=== PATIENT | male | born 1980 | race Two or more races ===

== ENCOUNTER 2022-09-26 14:50 | Outpatient (CLI) | payer MEDICARE, OTHER | END 2022-09-26 23:59 | disposition home or self-care (01) | LOC: LAB 14:50 | PROVIDERS: ATTEND Surgery Vascular Surgery | DX: Z01.812 Encounter for preprocedural laboratory examination (principal); Z20.822 Contact with and (suspected) exposure to COVID-19 | CPT/HCPCS: U0003; C9803 ==

== ENCOUNTER 2022-10-03 11:48 | Outpatient (CLI) | payer MEDICARE, OTHER | END 2022-10-03 23:59 | disposition home or self-care (01) | LOC: LAB 11:48 | PROVIDERS: ATTEND Surgery Vascular Surgery | DX: Z01.812 Encounter for preprocedural laboratory examination (principal); Z20.822 Contact with and (suspected) exposure to COVID-19 | CPT/HCPCS: U0003; C9803 ==

== ENCOUNTER 2022-10-09 06:03 | Inpatient (IN) | payer MEDICARE, OTHER ==
[2022-10-09] VITALS (11 sets, daily range): BP systolic 142–175; BP diastolic 90–101
[~2022-10-09] VITALS: Ht 167.6 cm; Wt 73.5 kg
[2022-10-09] MEDS ORDERED: IOHEXOL 240MG/ML 50 ML IV ONE (07:10)
[2022-10-09] MEDS ORDERED: HEPARIN SODIUM, PORCINE 1,000 UNIT/ML VIAL ONE (07:10)
[2022-10-09] MEDS ORDERED: BUPIVACAINE 0.5 % PF 150 MG/30 ML VIAL ONE (07:10)
[2022-10-09] MEDS ORDERED: LIDOCAINE 1% INJ 50 ML MDV IJ ONE (07:10)
[2022-10-09] MEDS ORDERED: CELLULOSE,OXIDIZED 1 EACH EACH MC ONE (07:11)
[2022-10-09 07:42] LABS: CALCIUM, SERUM 9.6 mg/dL (8.5-10.1); POTASSIUM 4.5 mmol/L (3.5-5.1)
[2022-10-09 07:46] LABS: EOSINOPHILS % (AUTO) 1.7 % (0.0-6.0); HEMATOCRIT 36 % (39-51); HEMOGLOBIN 11.9 g/dL (13.5-17.5); LYMPHOCYTES # (AUTO) 0.9 K/uL (0.8-4.8); MEAN CORPUSCULAR HGB CONC 33 g/dl (31.0-36.0); MEAN CORPUSCULAR VOLUME 99 fL (80-96); MONOCYTES # (AUTO) 0.4 K/uL (0.1-1.30); NEUTROPHILS # (AUTO) 2.2 K/uL (1.8-8.9); NEUTROPHILS % (AUTO) 61.3 % (43.0-81.0); PLATELET COUNT (AUTO) 183 K/uL (150-450); RED BLOOD CELL COUNT(AUTO) 3.68 MIL/uL (4.5-6.0); WHITE BLOOD COUNT (AUTO) 3.6 K/uL (4.3-11.0)
[2022-10-09] MEDS ORDERED: FENTANYL PF 100MCG/2ML AMPUL ONE ×2 (08:11→11:46)
[2022-10-09] MEDS ORDERED: POLYMYXIN B SULFATE 500,000 UNITS ONE (10:11)
[2022-10-09] MEDS ORDERED: hydrALAZINE HCL IV 20 MG VIAL ONE (11:59)
--- NOTE | 2022-10-09 12:30 | NUR ---
ICU/RN PT TRANSFER FROM OR.POST LEFT ARM HD FISTULA LIGATION BY DR JO.PT POST OP HAS SOB.BP WAS HIGH. PT IS ESRD. ON HD.NEW RIGHT CHEST HD CATH PLACED.IV-HL.PT IS SLEEPY.ANURIC.LEFT ARM DANNY DRAINING WITH BLOODY SECRETION. ARM HAS SURGICAL DRESSING NO S/S OF BLEEDING NOTED.V/S STABLE,AFEBRILE. ON 2L N/C ,SAT O2-97%.
[2022-10-09] MEDS ORDERED: ERGO500040 PO (13:18)
[2022-10-09] MEDS ORDERED: ASPI-1420 PO (13:18)
[2022-10-09] MEDS ORDERED: NIFE90TA38 PO (13:18)
[2022-10-09] MEDS ORDERED: LISI10TA29 PO (13:18)
[2022-10-09] MEDS ORDERED: CALC667C6 PO (13:18)
[2022-10-09] MEDS ORDERED: SILD20TA2 PO (13:18)
[2022-10-09] MEDS ORDERED: APIX5TAB PO (13:18)
[2022-10-09] MEDS ORDERED: CINA60TA4 PO (13:18)
[2022-10-09] MEDS ORDERED: HYDR-4076 PO (13:18)
[2022-10-09] MEDS ORDERED: ATOR40TA PO (13:18)
[2022-10-09] MEDS ORDERED: LANT10005 PO (13:18)
[2022-10-09] MEDS ORDERED: FOLI0.8T2 PO (13:18)
[2022-10-09] MEDS ORDERED: CARV3.122 PO (13:18)
[2022-10-09] MEDS ORDERED: SEVE800T28 PO (13:18)
[2022-10-09] MEDS ORDERED: CEFAZOLIN 1 GM in IV D5W 50 ML IV ONE (14:00)
[2022-10-09] MEDS ORDERED: ANESTHESIA TRAY IN PYXIS 1 EA TRAY MC ONE (14:17)
[2022-10-09 14:58] LABS: BASOPHILS # (AUTO) 0.1 K/uL (0.0-0.2); BASOPHILS % (AUTO) 1.8 % (0.0-2.0); EOSINOPHILS % (AUTO) 0.1 % (0.0-6.0); HEMATOCRIT 34 % (39-51); HEMOGLOBIN 11.2 g/dL (13.5-17.5); LYMPHOCYTES # (AUTO) 0.2 K/uL (0.8-4.8); LYMPHOCYTES % (AUTO) 4.5 % (20.0-44.0); MEAN CORPUSCULAR HGB CONC 33 g/dl (31.0-36.0); MEAN CORPUSCULAR VOLUME 98 fL (80-96); MONOCYTES # (AUTO) 0.1 K/uL (0.1-1.30); MONOCYTES % (AUTO) 1.9 % (2.0-12.0); NEUTROPHILS # (AUTO) 4.6 K/uL (1.8-8.9); NEUTROPHILS % (AUTO) 91.7 % (43.0-81.0); PLATELET COUNT (AUTO) 169 K/uL (150-450); RED BLOOD CELL COUNT(AUTO) 3.49 MIL/uL (4.5-6.0); WHITE BLOOD COUNT (AUTO) 5.1 K/uL (4.3-11.0)
[2022-10-09] MEDS: CEFAZOLIN 1 GM in IV D5W 50 ML IV SCH ×2 (15:14→23:12)
--- NOTE | 2022-10-09 15:46 | NUR ---
ICU/RN DUE MEDS ARE GIVEN ORDERED. KATHRINE QUEEN SEEN THE PT ,NEW ORDERS RECEIVED.
[2022-10-09] MEDS: APIXABAN 5 MG TABLET PO SCH (17:00)
[2022-10-09] MEDS: SILDENAFIL CITRATE 20 MG TABLET PO SCH (17:48)
[2022-10-09] MEDS: hydrALAZINE HCL 25 MG TABLET PO SCH (17:48)
[2022-10-09] MEDS: CALCIUM ACETATE 667 MG CAP/TAB PO SCH (17:49)
[2022-10-09] MEDS: CARVEDILOL 3.125 MG TABLET PO SCH (17:49)
[2022-10-09] MEDS: SEVELAMER CARBONATE 800 MG TABLET PO SCH (17:49)
[2022-10-09] MEDS: LANTHANUM CARBONATE 500 MG TAB.CHEW PO SCH (17:50)
[2022-10-09] MEDS: MORPHINE SULFATE INJ 2 MG/ML DISP.SYRIN IV PRN (17:51)
--- NOTE | 2022-10-09 20:16 | NUR ---
RN OPENING NOTE PT A&OX4 IN SEMI-FOWLERS POSITION. RESPIRATIONS EVEN AND UNLABORED ON 4 LPM NC WITH O2 SAT OF 98%. SKIN IS HOT AND DRY TO TOUCH BUT AFEBRILE WITH TEMP OF 98.8. DANNY DRAIN OF RUE INTACT WITH SANGUINEOUS DRAINAGE. CMS PRESENT IN BILAT UPPER EXTREMITIES. NO OTHER SIGNS OF ACTIVE BLEEDING. 22G IV OF LLE INTACT AND RUNNING 0.9 NS AT 10ML/HR. PT DENIES PAIN AND OTHER NEEDS AT THIS TIME. SAFETY PRECAUTIONS IN PLACE. BED LOCKED AND AT LOWEST LEVEL. X2 RAILS UP AND CALL LIGHT WITHIN REACH. Addendum: 10/09/22 at 2024 by SUNDEEP CLARK RN SURGICAL DRESSING DRY AND CLEAN. L RADIAL PULSE IS STRONG. DANNY DRAIN ON LUE.
[2022-10-09] MEDS: ATORVASTATIN 40 MG TABLET PO SCH (21:17)
[2022-10-10] VITALS (30 sets, daily range): BP systolic 145–176; BP diastolic 84–111
--- NOTE | 2022-10-10 03:48 | NUR ---
SALES RECRUITMENT SPECIALIST. AM CARE GIVEN. REMAINING SAME IVF RUNNING. HOB ELEVATED, FC PATENT. AMIODARONE HOB ELEVATED, TURN AND REPOSITION Q2H.WILL CONTINUE TO MONITOR VITALS. Addendum: 10/10/22 at 0357 by MEI CASH RN different pt care,
[2022-10-10 04:46] LABS: BASOPHILS % (AUTO) 0.7 % (0.0-2.0); EOSINOPHILS % (AUTO) 1.2 % (0.0-6.0); HEMATOCRIT 32 % (39-51); HEMOGLOBIN 10.5 g/dL (13.5-17.5); LYMPHOCYTES # (AUTO) 0.8 K/uL (0.8-4.8); LYMPHOCYTES % (AUTO) 14.8 % (20.0-44.0); MEAN CORPUSCULAR HGB CONC 34 g/dl (31.0-36.0); MEAN CORPUSCULAR VOLUME 98 fL (80-96); MONOCYTES # (AUTO) 0.6 K/uL (0.1-1.30); MONOCYTES % (AUTO) 11.3 % (2.0-12.0); PLATELET COUNT (AUTO) 187 K/uL (150-450); RED BLOOD CELL COUNT(AUTO) 3.22 MIL/uL (4.5-6.0); WHITE BLOOD COUNT (AUTO) 5.5 K/uL (4.3-11.0)
[2022-10-10 05:16] LABS: CALCIUM, SERUM 8.8 mg/dL (8.5-10.1); POTASSIUM 5.4 mmol/L (3.5-5.1)
--- NOTE | 2022-10-10 05:34 | NUR ---
agriculture mechanic. am care given. remaining same oxygen tolerated well. sat 98%. no acute distress noted. youth leader ahowing nsr, iv rt hand tko running. turn and reposition q2h, will continue to monitor vitals.
[2022-10-10] MEDS: HYDROCODONE/APAP 10/325MG TABLET PO PRN (06:09)
--- NOTE | 2022-10-10 07:05 | NUR ---
WOUND CARE CONSULT: RECEIVED CONSULT FOR SURGICAL SITE. DEFER TO VASCULAR SURGEON. DISCUSSED WITH SAMPLE CHECKER. CURRENT YEISON SCORE IS 19. WILL SEE PRN.
[2022-10-10] MEDS: hydrALAZINE HCL IV 20 MG VIAL IV PRN ×2 (07:08→17:56)
--- NOTE | 2022-10-10 07:40 | NUR ---
ICU/RN PT IS RESTING ON 3L N/C SAT O2-99%.AFEBRILE.LEFT ARM POST OP DRESSING INTACT.DANNY DRAINING WITH MINIMAL AMOUNT OF BLOODY SECRETION.ANURIC. WAITING FOR HD.LABS REVIEW. NOTIFIED.
[2022-10-10] MEDS: LISINOPRIL (10MG) 10 MG TABLET PO SCH (08:11)
[2022-10-10] MEDS: CALCIUM ACETATE 667 MG CAP/TAB PO SCH ×3 (08:11→17:04)
[2022-10-10] MEDS: SILDENAFIL CITRATE 20 MG TABLET PO SCH ×2 (08:11→17:04)
[2022-10-10] MEDS: NIFEdipine XL (30MG) 30 MG TAB PO SCH (08:11)
[2022-10-10] MEDS: hydrALAZINE HCL 25 MG TABLET PO SCH ×2 (08:12→17:03)
[2022-10-10] MEDS: SEVELAMER CARBONATE 800 MG TABLET PO SCH ×3 (08:12→17:14)
[2022-10-10] MEDS: ASPIRIN EC 81 MG TABLET.DR PO SCH (08:13)
[2022-10-10] MEDS: CARVEDILOL 3.125 MG TABLET PO SCH ×2 (08:13→17:04)
[2022-10-10] MEDS: APIXABAN 5 MG TABLET PO SCH ×2 (08:14→17:10)
[2022-10-10] MEDS: LANTHANUM CARBONATE 500 MG TAB.CHEW PO SCH ×2 (08:15→17:04)
--- NOTE | 2022-10-10 09:00 | NUR ---
ICU/RN DUE MEDS ARE GIVEN ORDERED.ELIQUIS AND ASPIRIN PLACED ON HOLD.PT IS WAITING FOR THORACENTESIS TODAY.HD STARTED, HD NURSE AT BEDSIDE.CONTINUE MONITORING.
--- NOTE | 2022-10-10 12:00 | NUR ---
ICU/RN HD IS OVER -3L OUTPUT.PT TOLERATED PROCEDURE WELL.
--- NOTE | 2022-10-10 13:00 | NUR ---
ICU/RN RIGHT LUNG THORACENTESIS DONE-2,300 ML.PT TOLERATED PROCEDURE WELL NO S/S OF BLEEDING NOTED.CHEST X-RAY DONE ,
--- NOTE | 2022-10-10 15:00 | NUR ---
ICU/RN LEFT ARM DANNY REMOVED BY DR JO.NEW DRESSING APPLIED. LEFT ARM WARM AND SWOLLEN. AWARE.
[2022-10-10] MEDS: MORPHINE SULFATE INJ 2 MG/ML DISP.SYRIN IV PRN (17:03)
--- NOTE | 2022-10-10 18:15 | NUR ---
ICU/RN PT TRANSFERED TO TELE UNIT.AFEBRILE.MORPHINE FOR PAIN AND HYDRALAZINE 10 MG IV FOR HIGH BP GIVEN ORDERED.REPORT GIVEN TO MRYIAM/MALIHA. FAMILY AT BEDSIDE.
--- NOTE | 2022-10-10 18:31 | NUR ---
RN NOTE PATIENT TRANSFERRED FROM ICU VIA BED, BEDSIDE REPORT GIVEN BY MALIHA RIDDLE. VS TAKEN. NO PAIN NOTED AT THIS TIME. WILL ENDORSE CONTINUITY OF CARE TO MOVIE EDITOR NURSE
--- NOTE | 2022-10-10 19:30 | NUR ---
noc rn note received patient in bed, a/ox4. no s/s of apparent distress on room air. denies pain at this time. reading sr with 90 bpm at this time. L. arm with dressing, clean, dry, and intact. Rt. cw permacath noted in place with dressing, clean, dry, and intact. patient has 2 iv access in rt. fa #22g and l. lower leg #18g both in saline lock. call light within reach. safety in place. will continue with patient's plan of care.
[2022-10-10] MEDS: ATORVASTATIN 40 MG TABLET PO SCH (21:21)
[2022-10-11] VITALS: BP 128/81
[2022-10-11] MEDS: HYDROCODONE/APAP 10/325MG TABLET PO PRN (00:15)
[2022-10-11 04:00] VITALS: BP 134/83
--- NOTE | 2022-10-11 07:10 | NUR ---
noc rn closing note patient resting in bed at this time. no s/s of apparent distress on room air. no c/o pain at this time. no fluids running at this time. patient needs attended. all scheduled medication administered. call light within reach. safety in place. will endorse to morning shift RN for continuity of patient care.
--- NOTE | 2022-10-11 07:30 | NUR ---
RN notes Received patient in bed, resting without active complaint. Left arm wounds are dry and intact. Noted left hand edema, placed an extra pillow to elevate and encouraged him to do some exercises to promote blood return. Telemetry showed SR 81/min. Right hand and left leg IV sites are intact and patent. Will continue monitoring and care.
--- NOTE | 2022-10-11 09:30 | NUR ---
RN NOTE DIALYSIS STARTED AT THIS TIME. PATIENT STATED NO PAIN AT THIS TIME.
--- NOTE | 2022-10-11 11:00 | NUR ---
RN NOTE DIALYSIS COMPLETE 1L REMOVED TODAY.
[2022-10-11] MEDS: SEVELAMER CARBONATE 800 MG TABLET PO SCH ×2 (13:00→13:04)
[2022-10-11] MEDS: CALCIUM ACETATE 667 MG CAP/TAB PO SCH ×2 (13:00→13:03)
[2022-10-11] MEDS: LANTHANUM CARBONATE 500 MG TAB.CHEW PO SCH (13:01)
[2022-10-11] MEDS: NIFEdipine XL (30MG) 30 MG TAB PO SCH (13:02)
[2022-10-11] MEDS: LISINOPRIL (10MG) 10 MG TABLET PO SCH (13:03)
[2022-10-11] MEDS: SILDENAFIL CITRATE 20 MG TABLET PO SCH (13:03)
[2022-10-11] MEDS: CARVEDILOL 3.125 MG TABLET PO SCH (13:03)
[2022-10-11] MEDS: ASPIRIN EC 81 MG TABLET.DR PO SCH (13:03)
[2022-10-11 13:04] VITALS: BP 158/98
[2022-10-11] MEDS: hydrALAZINE HCL 25 MG TABLET PO SCH (13:04)
[2022-10-11] MEDS: APIXABAN 5 MG TABLET PO SCH (13:06)
--- NOTE | 2022-10-11 13:08 | NUR ---
RN NOTE GAVE 0900 DOSE AT 1300 OF SEVELAMER CARBONATE, AND CALCIUM ACETATE.
--- NOTE | 2022-10-11 14:36 | NUR ---
RN NOTE PATIENT DISCHARGED IN STABLE CONDITION. DISCHARGE PACKET GIVEN, PATIENT PICKED UP BY [facility] FOR HOME. CHARGE NURSE AWARE.
[2022-10-13] MEDS ORDERED: ERGOCALCIFEROL (VITAMIN D 2) 50,000 UNIT CAPSULE PO SCH (09:00)
== END 2022-10-11 14:30 | disposition home or self-care (01) | DRG 252 ==
LOC: DS 06:03 → ICU 12:25 → TELE1 10-10 18:10
PROVIDERS: ADMIT Surgery Vascular Surgery; ATTEND Nurse Practitioner Acute Care
PROC: 03WY37Z Revision of Autologous Tissue Substitute in Upper Artery, Percutaneous Approach (ICD-10-PCS; principal; 2022-10-09)
PROC: 0JH63XZ Insertion of Tunneled Vascular Access Device into Chest Subcutaneous Tissue and Fascia, Percutaneous Approach (ICD-10-PCS; 2022-10-09)
PROC: B5181ZZ Fluoroscopy of Superior Vena Cava using Low Osmolar Contrast (ICD-10-PCS; 2022-10-09)
PROC: 05L Upper Veins, Occlusion (ICD-10-PCS; 2022-10-09)
PROC: 0W993ZZ Drainage of Right Pleural Cavity, Percutaneous Approach (ICD-10-PCS; 2022-10-09)
PROC: 5A1D70Z Performance of Urinary Filtration, Intermittent, Less than 6 Hours Per Day (ICD-10-PCS; 2022-10-10)
DX: T82.510A Breakdown (mechanical) of surgically created arteriovenous fistula, initial encounter (principal); N18.6 End stage renal disease; D68.59 Other primary thrombophilia; J90 Pleural effusion, not elsewhere classified; I96 Gangrene, not elsewhere classified; I12.0 Hypertensive chronic kidney disease with stage 5 chronic kidney disease or end stage renal disease; E11.52 Type 2 diabetes mellitus with diabetic peripheral angiopathy with gangrene; E11.22 Type 2 diabetes mellitus with diabetic chronic kidney disease; Z99.2 Dependence on renal dialysis; E11.622 Type 2 diabetes mellitus with other skin ulcer; L98.499 Non-pressure chronic ulcer of skin of other sites with unspecified severity; Y83.8 Other surgical procedures as the cause of abnormal reaction of the patient, or of later complication, without mention of misadventure at the time of the procedure; Y92.009 Unspecified place in unspecified non-institutional (private) residence as the place of occurrence of the external cause; E78.5 Hyperlipidemia, unspecified
CPT/HCPCS: 36415; 71045-TC; 80048-TC; 85025-TC; 85610-TC; 85730-TC; 86706; 87102-TC; 87340; 89051-TC; 90935-TC; 94799-TC; A6209; C1750; C1769; G0378; J0330; J0360; J0690; J1100; J1644; J2270; J2405; J2704; J3010; J3490; J7030; J7050; J7060; Q9966

== ENCOUNTER 2022-11-07 07:20 | Outpatient (CLI) | payer MEDICARE, OTHER ==
[~2022-11-07 07:20] MED LIST: APIX5TAB PO; ASPI-1420 PO; ATOR40TA PO; CALC667C6 PO; CARV3.122 PO; CINA60TA4 PO; ERGO500040 PO; FOLI0.8T2 PO; HYDR-4076 PO; LANT10005 PO; LISI10TA29 PO; NIFE90TA38 PO; SEVE800T28 PO; SILD20TA2 PO
== END 2022-11-07 23:59 | disposition home or self-care (01) ==
LOC: LAB 07:20
PROVIDERS: ATTEND Surgery Vascular Surgery
DX: Z01.812 Encounter for preprocedural laboratory examination (principal); Z20.822 Contact with and (suspected) exposure to COVID-19
CPT/HCPCS: U0003; C9803

== ENCOUNTER 2022-11-13 06:25 | Day surgery (SDC) | payer MEDICARE, OTHER ==
[~2022-11-13] VITALS: Ht 160 cm; Wt 65.8 kg
[2022-11-13] MEDS ORDERED: CEFAZOLIN 0 GM ONE (06:42)
[2022-11-13] MEDS ORDERED: LIDOCAINE HCL/MPF 1% 30 ML VIAL IJ ONE (06:43)
[2022-11-13] MEDS ORDERED: BUPIVACAINE MPF 0.5% W/EPI INJ 30 ML VIAL ONE (06:43)
[2022-11-13] MEDS ORDERED: HEMOSTATIC MATRIX 8 ML 1 EACH PAD MC ONE (06:44)
[2022-11-13 06:59] LABS: BASOPHILS % (AUTO) 0.8 % (0.0-2.0); EOSINOPHILS % (AUTO) 2.8 % (0.0-6.0); HEMATOCRIT 35 % (39-51); HEMOGLOBIN 11.6 g/dL (13.5-17.5); LYMPHOCYTES # (AUTO) 0.9 K/uL (0.8-4.8); MEAN CORPUSCULAR HGB CONC 33 g/dl (31.0-36.0); MEAN CORPUSCULAR VOLUME 95 fL (80-96); MONOCYTES # (AUTO) 0.5 K/uL (0.1-1.30); MONOCYTES % (AUTO) 9.3 % (2.0-12.0); NEUTROPHILS # (AUTO) 3.6 K/uL (1.8-8.9); NEUTROPHILS % (AUTO) 69.1 % (43.0-81.0); PLATELET COUNT (AUTO) 190 K/uL (150-450); RED BLOOD CELL COUNT(AUTO) 3.65 MIL/uL (4.5-6.0); WHITE BLOOD COUNT (AUTO) 5.3 K/uL (4.3-11.0)
[2022-11-13] MEDS ORDERED: HEPARIN SODIUM, PORCINE 1,000 UNIT/ML VIAL ONE (06:59)
[2022-11-13] MEDS ORDERED: IOHEXOL 240MG/ML 0 ML IV ONE (07:00)
[2022-11-13] MEDS ORDERED: LIDOCAINE 1% INJ 50 ML MDV IJ ONE (07:00)
[2022-11-13] MEDS ORDERED: BUPIVACAINE 0.25% 75 MG/30 ML VIAL ONE (07:00)
[2022-11-13] MEDS ORDERED: CELLULOSE,OXIDIZED 1 EACH EACH MC ONE (07:07)
[2022-11-13 07:14] LABS: CALCIUM, SERUM 9.6 mg/dL (8.5-10.1); CREATININE 5.6 mg/dL (0.6-1.3); POTASSIUM 4.7 mmol/L (3.5-5.1)
[2022-11-13 07:23] LABS: ALBUMIN 3.9 g/dL (3.4-5.0); BILIRUBIN,TOTAL 0.8 mg/dL (0.2-1.0); TOTAL PROTEIN, SERUM 8.5 g/dL (6.4-8.2)
[2022-11-13] MEDS ORDERED: HYDROMORPHONE INJ 2 MG/ML DISP.SYRIN ONE (07:50)
[2022-11-13] MEDS ORDERED: BACITRACIN ZINC OINT PACKET 1 EA PACKET TP ONE (09:32)
[2022-11-13] MEDS ORDERED: ANESTHESIA TRAY IN PYXIS 1 EA TRAY MC ONE (10:31)
[2022-11-13 10:40] VITALS: BP 150/101
[2022-11-13 10:45] VITALS: BP 150/101
[2022-11-13 11:55] VITALS: BP 149/100
[2022-11-13 12:10] VITALS: BP 143/96
[2022-11-13 12:15] VITALS: BP 135/98
[2022-11-13 16:00] VITALS: BP 158/99
== END 2022-11-13 18:00 | disposition home or self-care (01) ==
LOC: DS 06:25 → UNDOADMIN 11:11 → MED 11:11 → UNDODISIN 18:00 → DS 18:00
PROVIDERS: ATTEND Surgery Vascular Surgery
DX: E11.22 Type 2 diabetes mellitus with diabetic chronic kidney disease (principal); I13.2 Hypertensive heart and chronic kidney disease with heart failure and with stage 5 chronic kidney disease, or end stage renal disease; I50.9 Heart failure, unspecified; N18.6 End stage renal disease; Z99.2 Dependence on renal dialysis; D64.9 Anemia, unspecified; Z88.0 Allergy status to penicillin; Z98.890 Other specified postprocedural states; Z79.899 Other long term (current) drug therapy
CPT/HCPCS: 36819; 32555; 71045 ×3; 93005; 85025; 85610; 85730; 36415; 80053; J0690; J1100; J2704; J1644 ×3; J1170; J3490 ×3; J2405; J7030 ×2; A6253; C1769; A6209; G0378; Q9966

== ENCOUNTER 2022-12-04 10:55 | Outpatient (CLI) | payer MEDICARE, OTHER | END 2022-12-04 23:59 | disposition home or self-care (01) | LOC: LAB 10:55 | PROVIDERS: ATTEND Surgery Vascular Surgery | DX: Z01.812 Encounter for preprocedural laboratory examination (principal); Z20.822 Contact with and (suspected) exposure to COVID-19 | CPT/HCPCS: U0003; C9803 ==

== ENCOUNTER 2022-12-09 12:55 | Day surgery (SDC) | payer MEDICARE, OTHER ==
[~2022-12-09] VITALS: Ht 162.6 cm; Wt 68.0 kg
[~2022-12-09 12:55] MED LIST changes: +BUPIVACAINE 0.25% 75 MG/30 ML VIAL ONE; +CELLULOSE,OXIDIZED 1 EACH EACH MC ONE; +LIDOCAINE HCL/MPF 1% 30 ML VIAL IJ ONE
[2022-12-09 13:37] LABS: BASOPHILS % (AUTO) 1.1 % (0.0-2.0); EOSINOPHILS % (AUTO) 2.1 % (0.0-6.0); HEMATOCRIT 33 % (39-51); HEMOGLOBIN 11.1 g/dL (13.5-17.5); LYMPHOCYTES # (AUTO) 0.8 K/uL (0.8-4.8); MEAN CORPUSCULAR HGB CONC 33 g/dl (31.0-36.0); MEAN CORPUSCULAR VOLUME 96 fL (80-96); MONOCYTES # (AUTO) 0.5 K/uL (0.1-1.30); MONOCYTES % (AUTO) 13.3 % (2.0-12.0); NEUTROPHILS # (AUTO) 2.3 K/uL (1.8-8.9); NEUTROPHILS % (AUTO) 61.5 % (43.0-81.0); PLATELET COUNT (AUTO) 180 K/uL (150-450); RED BLOOD CELL COUNT(AUTO) 3.45 MIL/uL (4.5-6.0); WHITE BLOOD COUNT (AUTO) 3.8 K/uL (4.3-11.0)
[2022-12-09] MEDS ORDERED: PAPAVERINE HCL 30 MG/ML 10 MLVIAL IJ ONE ×2 (14:00→14:30)
[2022-12-09] MEDS ORDERED: FAMOTIDINE/PF INJ 20 MG/2 ML VIAL IV ONE (14:08)
[2022-12-09] MEDS ORDERED: SUCCINYLCHOLINE CHLORIDE 20 MG/ML VIAL ONE (14:08)
[2022-12-09] MEDS ORDERED: FENTANYL PF 100MCG/2ML AMPUL ONE (14:08)
[2022-12-09] MEDS ORDERED: CLINDAMYCIN IV RTU IN D5W 50 ML ONE (14:30)
[2022-12-09] MEDS ORDERED: LIDOCAINE HCL/PF 1% 30 ML SDV ONE (15:01)
[2022-12-09] MEDS ORDERED: KETAMINE HCL (500MG/10ML) 50 MG/ML VIAL ONE (15:01)
[2022-12-09 15:03] LABS: CALCIUM, SERUM 8.6 mg/dL (8.5-10.1); CREATININE 4.3 mg/dL (0.6-1.3); POTASSIUM 4.9 mmol/L (3.5-5.1)
[2022-12-09] MEDS ORDERED: POLYMYXIN B SULFATE 500,000 UNITS ONE (16:35)
[2022-12-09] MEDS ORDERED: HYDROMORPHONE 1 MG/1 ML DISP.SYRIN ONE (17:18)
[2022-12-09] MEDS ORDERED: DESMOPRESSIN IV ONE (17:30)
[2022-12-09] MEDS ORDERED: NS 0.9% IV ONE (17:30)
[2022-12-09] MEDS ORDERED: HYDROCODONE/APAP 5/325MG TABLET PO PRN (18:00)
[2022-12-09] MEDS ORDERED: MORPHINE SULFATE INJ 2 MG/ML DISP.SYRIN IV PRN (18:00)
--- NOTE | 2022-12-09 19:00 | NUR ---
RN NOTES PATIENT FISTULA SITE IS DRY AND INTACT, NO SIGNS OF BLEEDING NOTED. DANNY DRAIN ATTACHED. TEACH PATIENT'S FAMILY ON HOW TO DRAIN DANNY BY OR NURSE.
--- NOTE | 2022-12-09 19:16 | NUR ---
RN ADMITTING NOTES RECEIVED PT FROM SURGERY C/O S/P AV FISTULA PLACEMENT, LEFT. NO COMPLICATIONS NOTED. ASSISTED TO BED, MADE COMFORTABLE, PT IS AWAKE, ALERT TO SELF, NOT IN DISTRESS, ON ROOM AIR, ROOM SET UP ORIENTATION PROVIDED, BED ALARM ON FOR SAFETY, VITALS TAKEN AND RECORDED. PATIENT IS FOR DISCHARGE TONIGHT ORDERED. FOR MONITORING FOR NOW FOR ANY COMPLICATIONS. ENDORSED TO NIGHT NURSE FOR RACHANA.
[2022-12-09 19:29] VITALS: BP 110/60
--- NOTE | 2022-12-09 19:45 | NUR ---
RN OPENING NOTE PATIENT ALERT/ORIENTED X 4, MOZAMBICAN SPEAKING. PATIENT STABLE ON RA, NO S/S OF DISTRESS OR SOB NOTED, BREATHING EVEN AND UNLABORED. IV ACCESS ON RIGHT HAND #20G INTACT AND SALINE LOCKED. PATIENT S/P LEFT ARM FISTULA WITH DANNY DRAIN. WRITTEN DISCHARGE ORDERS PER DR. JO, PATIENT TO BE DC'D HOME TONIGHT, FAMILY AT BEDSIDE. SAFETY MEASURES IN PLACE: CALL LIGHT WITHIN REACH, SIDE RAILS UP X 2, BED LOCKED IN LOWEST POSITION. WILL CONTINUE TO MONITOR PATIENT
[2022-12-09 20:37] VITALS: BP 129/75
--- NOTE | 2022-12-09 20:48 | NUR ---
CUTTING MACHINE OPERATOR NOTES PER DR. JO'S WRITTEN ORDERS, DISCHARGE PATIENT HOME, FOLLOW UP WITH DR. ON THURSDAY, DR. JO'S OFFICE INFORMATION GIVEN TO PATIENT TO MAKE APPOINTMENT. DANNY DRAIN CARE INSTRUCTIONS PROVIDED TO PATIENT, RENAL DIET EXPLAINED TO PATIENT. WRITTEN PRESCRIPTION FOR NORCO 5/325 MG GIVEN TO PATIENT, MEDICATION EXPLAINED TO PATIENT WELL INSTRUCTIONS AND SIDE EFFECTS. IV ACCESS AND ID BAND REMOVED. PATIENT ACCOMPANIED BY FAMILY AND WALKED DOWN TO LOBBY BY THIS NURSE. PATIENT DISCHARGED IN STABLE CONDITION.
== END 2022-12-09 16:00 | disposition home or self-care (01) ==
LOC: DS 12:55 → MED 18:01 → UNDOADMIN 18:01 → UNDODISIN 20:55
PROVIDERS: ATTEND Surgery Vascular Surgery
DX: I13.2 Hypertensive heart and chronic kidney disease with heart failure and with stage 5 chronic kidney disease, or end stage renal disease (principal); N18.6 End stage renal disease; I50.9 Heart failure, unspecified; Z99.2 Dependence on renal dialysis; Z88.0 Allergy status to penicillin; Z98.890 Other specified postprocedural states; Z79.899 Other long term (current) drug therapy
CPT/HCPCS: 36819; 71045; 85025; 80048; 36415; 82962; 93005; J2704; J3010; J3490 ×8; J2370; J2765; J0330; J7030; J7040; A4223; J1170; A6209; G0378; J2440; J2597